=== PATIENT | female | born 1980 | race Caucasian/White ===

== ENCOUNTER 2019-11-11 19:25 | Emergency (ER) | payer BC, OTHER ==
[2019-11-11] MEDS ORDERED: SODIUM CHLORIDE 0.9% 1,000 ML IV STA (19:55)
[2019-11-11] MEDS ORDERED: ACETAMINOPHEN TAB 500 MG TAB PO STA (19:55)
--- NOTE | 2019-11-11 19:57 | ED ---
General Adult HPI - General Source: patient Mode of arrival: wheelchair Limitations: no limitations <Spencer Monroe Radha - Last Filed: 11/11/19 20:50> <Harvey Dunaway - Last Filed: 11/11/19 22:46> - General Chief complaint: Weakness Stated complaint: Dehydrated Time Seen by Provider: 11/11/19 19:43 - History of Present Illness Initial comments: Dictation was produced using [employer] dictation software. please excuse any grammatical, word or spelling errors. This patient was cared for during a federal and state declared state of emergency secondary to Covid 19 Chief Complaint: 39-year-old female past medical history diabetes, dyslipidemia presents today with right-sided flank pain, cough. History of Present Illness: 39-year-old female she states that over the last week she's been feeling symptoms. Patient states that a week ago she was diagnosed with bronchitis. She just completed a Z-Jayme today. Patient reports several last couple of issues been having worsening right-sided flank pain. She denies any urinary symptoms. She denies any history of kidney infection. She denies any loss of taste or smell. No runny nose. No sore throat. No ear pain. No abdominal pain. She has no pain complaints except for the right flank. She is having constitutional symptoms. The ROS documented in this emergency department record has been reviewed and confirmed by me. Those systems with pertinent positive or negative responses have been documented in the HPI. All other systems are other negative and/or noncontributory. PHYSICAL EXAM: General Impression: Alert and oriented x3, not in acute distress HEENT: Normocephalic atraumatic, extra-ocular movements intact, pupils equal and reactive to light bilaterally, mucous membranes moist. Cardiovascular: Heart regular rate and rhythm Chest: Able to complete full sentences, no retractions, no tachypnea Abdomen: abdomen soft, non-tender, non-distended, no organomegaly Musculoskeletal: Pulses present and equal in all extremities, no peripheral edema, positive tenderness with CVA thump on the right Motor: no focal deficits noted Neurological: CN II-XII grossly intact, no focal motor or sensory deficits noted Skin: Intact with no visualized rashes Psych: Normal affect and mood ED course: 39-year-old female presents with constitutional symptoms, right flank pain and respiratory symptoms. Vital signs upon arrival shows temperature 102.2, heart rate of 112, rest of vital signs within acceptable limits. Patient does not want to be tested for coronavirus. X-ray shows mild basilar pulmonary infiltrates and atelectasis. Consider is nonspecific findings on x-ray there is concern of coronavirus. There are pe nding laboratory studies. Patient care to be signed off to Dr. Dunaway. (Spencer Monroe) - Related Data Home Medications Medication Instructions Recorded Confirmed [id number] Acid 1 tab PO DAILY 05/11/15 06/25/15 [-U Capsule (formulary)] Previous Rx's Medication Instructions Recorded Acetaminophen-Codeine 300-30mg 1 each PO Q4HR PRN #30 tab 06/27/15 [Tylenol w/codeine #3] Ibuprofen [Motrin] 600 mg PO Q6HR PRN #60 tab 06/27/15 Doxycycline Hyclate 100 mg PO Q12H 7 Days #14 tab 11/11/19 Allergies Allergy/AdvReac Type Severity Reaction Status Date / Time No Known Allergies Allergy Verified 11/11/19 19:36 Review of Systems ROS Other: All systems not noted in ROS Statement are negative. <Spencer Monroe - Last Filed: 11/11/19 20:50> ROS Other: All systems not noted in ROS Statement are negative. <Harvey Dunaway - Last Filed: 11/11/19 22:46> ROS Statement: Those systems with pertinent positive or pertinent negative responses have been documented in the HPI. Past Medical History Past Medical History: Diabetes Mellitus, Hyperlipidemia History of Any Multi-Drug Resistant Organisms: None Reported Past Surgical History: Section, Cholecystectomy Past Anesthesia/Blood Transfusion Reactions: No Reported Reaction Past Psychological History: No Psychological Hx Reported Smoking Status: Never smoker Past Alcohol Use History: None Reported Past Drug Use History: None Reported - Past Family History Mother Family Medical History: Cancer <Spencer Monroe - Last Filed: 11/11/19 20:50> General Exam Limitations: no limitations <Spencer Monroe - Last Filed: 11/11/19 20:50> Course <Harvey Dunaway - Last Filed: 11/11/19 22:46> Vital Signs 11/11/19 19:33 Temperature 102.2 F H Pulse Rate 112 H Respiratory 18 Rate Blood Pressure 152/95 O2 Sat by Pulse 96 Oximetry - Reevaluation(s) Reevaluation #1: 11/11/19 22:41 Patient was endorsed to me by ED physician Dr. Monroe (secondary to end of his shift) with the patient's UA and blood work still pending. Patient's UA and labs are fairly unremarkable. Patient is not leukocytotic. Patient's chest x- ray shows mild basilar infiltrates. Patient states that she is now feeling better. Patient is currently breathing comfortably with a normal room air oxygen saturation. Patient is aware of her test results, and she feels comfortable going home at this time. I have explained to the patient that her Covid test is still pending, and that Covid has NOT been ruled out. I have recommended quarantine precautions. Will treat the patient with a course of doxycycline for suspected pneumonia. Patient was counseled about pneumonia and fever control, and she feels comfortable going home at this time. Patient was clearly explained return and follow-up instructions. She was instructed to follow up closely with her primary care provider. (Harvey Dunaway) Medical Decision Making - Lab Data Result diagrams: 11/11/19 20:23 11/11/19 20:23 - Radiology Data Radiology results: report reviewed (Chest x-ray: Mild basilar pulmonary infiltrate and atelectasis) <Harvey Dunaway - Last Filed: 11/11/19 22:46> - Lab Data Lab Results 11/11/19 11/11/19 11/11/19 Range/Units 20:23 20:23 20:23 WBC 5.1 (3.8-10.6) k/uL RBC 4.70 (3.80-5.40) m/uL Hgb 12.3 (11.4-16.0) gm/dL Hct 39.0 (34.0-46.0) % MCV 82.9 (80.0-100.0) fL MCH 26.1 (25.0-35.0) pg MCHC 31.4 (31.0-37.0) g/dL RDW 15.5 (11.5-15.5) % Plt Count 183 (150-450) k/uL Neutrophils % 67 % Lymphocytes % 24 % Monocytes % 5 % Eosinophils % 0 % Basophils % 1 % Neutrophils # 3.5 (1.3-7.7) k/uL Lymphocytes # 1.2 (1.0-4.8) k/uL Monocytes # 0.3 (0-1.0) k/uL Eosinophils # 0.0 (0-0.7) k/uL Basophils # 0.1 (0-0.2) k/uL Sodium 139 (137-145) mmol/L Potassium 3.8 (3.5-5.1) mmol/L Chloride 105 (98-107) mmol/L Carbon Dioxide 25 (22-30) mmol/L Anion Gap 9 mmol/L BUN 8 (7-17) mg/dL Creatinine 0.65 (0.52-1.04) mg/dL Est GFR (CKD-EPI)AfAm >90 (>60 ml/min/1.73 sqM) Est GFR (CKD-EPI)NonAf >90 (>60 ml/min/1.73 sqM) Glucose 149 H (74-99) mg/dL Plasma Lactic Acid Ashok (0.7-2.0) mmol/L Calcium 8.3 L (8.4-10.2) mg/dL Total Bilirubin 0.7 (0.2-1.3) mg/dL AST 80 H (14-36) U/L ALT 47 H (4-34) U/L Alkaline Phosphatase 79 (38-126) U/L Total Protein 7.1 (6.3-8.2) g/dL Albumin 4.0 (3.5-5.0) g/dL Urine Color Yellow Urine Appearance Cloudy H (Clear) Urine pH 5.5 (5.0-8.0) Ur Specific [place] 1.022 (1.001-1.035) Urine Protein 1+ H (Negative) Urine Glucose (UA) Negative (Negative) Urine Ketones Negative (Negative) Urine Blood Negative (Negative) Urine Nitrite Negative (Negative) Urine Bilirubin Negative (Negative) Urine Urobilinogen <2.0 (<2.0) mg/dL Ur Leukocyte Esterase Negative (Negative) Urine RBC 1 (0-5) /hpf Urine WBC 2 (0-5) /hpf Ur Squamous Epith Cells 2 (0-4) /hpf Amorphous Sediment Rare H (None) /hpf Urine Bacteria Rare H (None) /hpf Urine Mucus Moderate H (None) /hpf 11/11/19 Range/Units 20:23 WBC (3.8-10.6) k/uL RBC (3.80-5.40) m/uL Hgb (11.4-16.0) gm/dL Hct (34.0-46.0) % MCV (80.0-100.0) fL MCH (25.0-35.0) pg MCHC (31.0-37.0) g/dL RDW (11.5-15.5) % Plt Count (150-450) k/uL Neutrophils % % Lymphocytes % % Monocytes % % Eosinophils % % Basophils % % Neutrophils # (1.3-7.7) k/uL Lymphocytes # (1.0-4.8) k/uL Monocytes # (0-1.0) k/uL Eosinophils # (0-0.7) k/uL Basophils # (0-0.2) k/uL Sodium (137-145) mmol/L Potassium (3.5-5.1) mmol/L Chloride (98-107) mmol/L Carbon Dioxide (22-30) mmol/L Anion Gap mmol/L BUN (7-17) mg/dL Creatinine (0.52-1.04) mg/dL Est GFR (CKD-EPI)AfAm (>60 ml/min/1.73 sqM) Est GFR (CKD-EPI)NonAf (>60 ml/min/1.73 sqM) Glucose (74-99) mg/dL Plasma Lactic Acid Ashok 1.3 (0.7-2.0) mmol/L Calcium (8.4-10.2) mg/dL Total Bilirubin (0.2-1.3) mg/dL AST (14-36) U/L ALT (4-34) U/L Alkaline Phosphatase (38-126) U/L Total Protein (6.3-8.2) g/dL Albumin (3.5-5.0) g/dL Urine Color Urine Appearance (Clear) Urine pH (5.0-8.0) Ur Specific [place] (1.001-1.035) Urine Protein (Negative) Urine Glucose (UA) (Negative) Urine Ketones (Negative) Urine Blood (Negative) Urine Nitrite (Negative) Urine Bilirubin (Negative) Urine Urobilinogen (<2.0) mg/dL Ur Leukocyte Esterase (Negative) Urine RBC (0-5) /hpf Urine WBC (0-5) /hpf Ur Squamous Epith Cells (0-4) /hpf Amorphous Sediment (None) /hpf Urine Bacteria (None) /hpf Urine Mucus (None) /hpf Disposition <Spencer Monroe - Last Filed: 11/11/19 20:50> Is patient prescribed a controlled substance at d/c from ED?: No Time of Disposition: 22:46 <Harvey Dunaway - Last Filed: 11/11/19 22:46> Clinical Impression: Pneumonia, Acute febrile illness Disposition: HOME SELF-CARE Condition: Stable Instructions (If sedation given, give patient instructions): Fever in Adults (ED), Pneumonia (ED) Additional Instructions: Return to the ER immediately should you develop any significant pain, shortness of breath, vomiting, feeling dizzy or faint, or new or worsening symptoms. Follow up closely with your primary care provider. Prescriptions: Doxycycline Hyclate 100 mg PO Q12H 7 Days #14 tab Referrals: Gustavo Kc MD [Primary Care Provider] - 1-2 days
--- NOTE | 2019-11-11 20:40 | XR ---
EXAMINATION TYPE: XR chest 1V portable DATE OF EXAM: 11/11/2019 COMPARISON: NONE HISTORY: Cough and weakness TECHNIQUE: Single view FINDINGS: There is some mild infiltrate and atelectasis at the lung bases. Heart size is normal. Ther e is no heart failure. There are no hilar masses. IMPRESSION: Mild basilar pulmonary infiltrates and atelectasis.
[2019-11-11 20:50] LABS: Basophils # (A) 0.1 k/uL (0-0.2); Basophils % (A) 1 %; Eosinophils % (A) 0 %; HGB 12.3 gm/dL (11.4-16.0); Lymphocytes # (A) 1.2 k/uL (1.0-4.8); Lymphocytes % (A) 24 %; MCH 26.1 pg (25.0-35.0); MCHC 31.4 g/dL (31.0-37.0); MCV 82.9 fL (80.0-100.0); Mean Platelet Volume 7.3; Monocytes # (A) 0.3 k/uL (0-1.0); Monocytes % (A) 5 %; Neutrophils # (A) 3.5 k/uL (1.3-7.7); Neutrophils % (A) 67 %; Platelet Count 183 k/uL (150-450); RDW 15.5 % (11.5-15.5); WBC 5.1 k/uL (3.8-10.6)
[2019-11-11 21:06] LABS: ALT 47 U/L (4-34); AST 80 U/L (14-36); African American GFR (CKD) >90 (>60 ml/min/1.73 sqM); Alkaline Phosphatase 79 U/L (38-126); Anion Gap 9 mmol/L; Blood Urea Nitrogen 8 mg/dL (7-17); Calcium 8.3 mg/dL (8.4-10.2); Carbon Dioxide 25 mmol/L (22-30); Chloride 105 mmol/L (98-107); Glucose 149 mg/dL (74-99); Non-African American GFR(CKD) >90 (>60 ml/min/1.73 sqM); Potassium 3.8 mmol/L (3.5-5.1); Sodium 139 mmol/L (137-145); Total Bilirubin 0.7 mg/dL (0.2-1.3); Total Protein 7.1 g/dL (6.3-8.2)
[2019-11-11 21:20] LABS: Amorphous Sediment,Urine Rare /hpf; Appearance,Urine Cloudy (Clear); Bacteria,Urine Rare /hpf; Bilirubin,Urine Negative (Negative); Blood,Urine Negative (Negative); Color,Urine Yellow; Glucose,Urine (UA) Negative (Negative); Ketones,Urine Negative (Negative); Leukocyte Esterase,Urine Negative (Negative); Mucus,Urine Moderate /hpf; Nitrite,Urine Negative (Negative); PH, Urine 5.5 (5.0-8.0); Protein,Urine 1+ (Negative); RBC,Urine 1 /hpf (0-5); Specific Gravity,Urine 1.022 (1.001-1.035); Squamous Epithelial Cell,Urine 2 /hpf (0-4); Urobilinogen,Urine <2.0 mg/dL (<2.0); WBC,Urine 2 /hpf (0-5)
[2019-11-11] MEDS ORDERED: DOXYCYCLINE 100 MG CAP PO STA (22:34)
[2019-11-11 22:47] VITALS: BP 123/85; PULSE 95; RESP 16; TEMP 98.6
== END 2019-11-11 22:52 | disposition home or self-care (01) ==
LOC: EC 19:25
DX: U07.1 COVID-19 (principal); J12.89 Other viral pneumonia; J98.11 Atelectasis; R91.8 Other nonspecific abnormal finding of lung field; R10.9 Unspecified abdominal pain
CPT/HCPCS: 99285; 96360; 36415; 80053; 83605; 85025; 81001; 87040; 71045; U0003

== ENCOUNTER → 2020-06-05 | Outpatient (CLI) | payer BC ==
--- NOTE | 2020-06-06 13:27 | MM ---
Reason for exam: screening (asymptomatic). Last mammogram was performed 4 years and 6 months ago. Physical Findings: A clinical breast exam by your physician is recommended on an annual basis and results should be correlated with mammographic findings. MG 3D Screening Mammo W/Cad Bilateral CC and MLO view(s) were taken. XCCL view(s) were taken of the left breast. Prior study comparison: December 09, 2015, bilateral MG screening mammo w CAD. The breast tissue is heterogeneously dense. This may lower the sensitivity of mammography. There are benign appearing round calcifications bilaterally. There is no discrete abnormality. ASSESSMENT: Benign, BI-RAD 2 RECOMMENDATION: Routine screening mammogram of both breasts in 1 year.
== END | disposition home or self-care (01) ==
LOC: RADMAMWWP 10:48
PROVIDERS: ATTEND Family Medicine
DX: Z12.31 Encounter for screening mammogram for malignant neoplasm of breast (principal)
CPT/HCPCS: 77063; 77067

== ENCOUNTER → 2021-06-06 | Outpatient (CLI) | payer OTHER ==
--- NOTE | 2021-06-09 11:48 | MM ---
Reason for exam: screening (asymptomatic). Last mammogram was performed 1 year ago. Physical Findings: A clinical breast exam by your physician is recommended on an annual basis and results should be correlated with mammographic findings. MG Screening Mammo w CAD Bilateral CC and MLO view(s) were taken. Prior study comparison: June 05, 2020, bilateral MG 3d screening mammo w/cad. December 09, 2015, bilateral MG screening mammo w CAD. There are scattered fibroglandular densities. Asymmetric breast tissue right middle breast 11-12cm from nipple on MLO and left CC view middle position 8cm from nipple. ASSESSMENT: Incomplete: need additional imaging evaluation, BI-RAD 0 RECOMMENDATION: Special view mammogram of the right breast. If lesion persists on supplemental views, image directed ultrasound is recommended. [facility] will attempt to contact patient to return for supplemental views and ultrasound if indicated.
== END | disposition home or self-care (01) ==
LOC: RADMAMWWP 09:01
PROVIDERS: ATTEND Obstetrics & Gynecology
DX: Z12.31 Encounter for screening mammogram for malignant neoplasm of breast (principal)
CPT/HCPCS: 77067

== ENCOUNTER → 2021-06-10 | Outpatient (CLI) | payer OTHER ==
--- NOTE | 2021-06-10 11:12 | MM ---
Reason for exam: additional evaluation requested from abnormal screening. Last mammogram was performed less than 1 month ago. Physical Findings: A clinical breast exam by your physician is recommended on an annual basis and results should be correlated with mammographic findings. MG 3D Work Up W/Cad JUAN DANIEL Bilateral ML view(s) were taken. Spot compression MLO view(s) were taken of the right breast. Spot compression CC view(s) were taken of the left breast. Prior study comparison: June 06, 2021, bilateral MG screening mammo w CAD. June 05, 2020, bilateral MG 3d screening mammo w/cad. The breast tissue is heterogeneously dense. This may lower the sensitivity of mammography. No distinct lesion persists on additional views. Results were given to the patient verbally at the time of the exam. ASSESSMENT: Negative, BI-RAD 1 RECOMMENDATION: Return to routine screening mammogram schedule for both breasts.
== END | disposition home or self-care (01) ==
LOC: RADMAMWWP 10:14
PROVIDERS: ATTEND Obstetrics & Gynecology
DX: R92.8 Other abnormal and inconclusive findings on diagnostic imaging of breast (principal)
CPT/HCPCS: 77062; 77066

== ENCOUNTER → 2022-08-10 | Outpatient (CLI) | payer BC ==
--- NOTE | 2022-08-12 07:50 | MM ---
Reason for Exam: Screening (asymptomatic). Last mammogram was performed 1 year(s) and 3 month(s) ago. Patient History: Menarche at age 11. First Full-Term at age 20. Premenopausal. Mother had ovarian cancer under age 50. Risk Values: Kate 5 year model risk: 0.6%. NCI Lifetime model risk: 8.8%. Prior Study Comparison: 12/09/2015 Bilateral Screening Mammogram, [facility]. 06/05/2020 Bilateral Screening Mammogram, [facility]. 06/06/2021 Bilateral Screening Mammogram, [facility]. 06/10/2021 Bilateral Diagnostic Mammogram, [facility]. Tissue Density: The breast tissue is heterogeneously dense. This may lower the sensitivity of mammography. Findings: Analyzed By CAD. There is no suspicious group of microcalcifications or new suspicious mass in either breast. Overall Assessment: Negative, BI-RAD 1 Management: Screening Mammogram of both breasts in 1 year. A clinical breast exam by your physician is recommended on an annual basis and results should be correlated with mammographic findings. Note on Kate scores and lifetime risk: 1. A Kate score greater than 3% is considered moderate risk. If this is the case, consider specialist referral to assess eligibility for a risk reducing agent. If overall lifetime risk for the development of breast cancer is 20% or higher, the patient may qualify for future screening with alternating mammogram and breast MRI. Electronically signed and approved by: Yoni Bowers D.O.
== END | disposition home or self-care (01) ==
LOC: RADMAMWWP 08:18
PROVIDERS: ATTEND Family Medicine
DX: Z12.31 Encounter for screening mammogram for malignant neoplasm of breast (principal); Z80.41 Family history of malignant neoplasm of ovary
CPT/HCPCS: 77063; 77067

== ENCOUNTER → 2022-09-10 | Outpatient (CLI) | payer BC ==
--- NOTE | 2022-09-10 12:20 | US ---
EXAMINATION TYPE: US transvaginal DATE OF EXAM: 09/10/2022 COMPARISON: US 2010 CLINICAL INDICATION: Female, 42 years old with history of R10.2 PELVIC AND PERINEAL PAIN; 1 episode o f pelvic pain 2 weeks ago, family history ovarian cancer, history 2 c-sections TECHNIQUE: Transvaginal only per patient's order Date of LMP: 08/22/2022 EXAM MEASUREMENTS: Uterus: 8.2 x 4.4 x 5.2 cm Endometrial Stripe: 1.3 cm Right Ovary: 3.9 x 2.2 x 2.8 cm Left Ovary: not seen 1. Uterus: anteverted, mildly heterogeneous myometrium. 4 mm fluid locule at the patient's scar. 2. Endometrium: Upper limits of normal, measures wnl for patient's LMP 3. Right Ovary: 2.3 x 1.4 x 2.1cm complex area with hyperechoic rim, 1.8 x 1.4 x 1.6cm hypoechoic ar ea 4. Left Ovary: not seen due to overlying bowel gas 5. Bilateral Adnexa: wnl 6. Posterior cul-de-sac: small amount of free fluid IMPRESSION: 1. A tiny scar niche measuring 4 mm. 2. Endometrial stripe thickening to the upper limits of normal at 1.3 cm. This should correspond to t he secretory phase of the menstrual cycle. 3. A couple lesions within the right ovary measuring 2.3 cm and 1.8 cm, probably a hemorrhagic cyst a nd corpus luteum. Follow-up in 6-8 weeks to assess for involution. 4. Small amount of cul-de-sac free fluid probably physiologic. 5. Unable to visualize the left ovary.
== END | disposition home or self-care (01) ==
LOC: RADUSWWP 09:31
PROVIDERS: ATTEND Family Medicine
DX: N89.8 Other specified noninflammatory disorders of vagina (principal); N83.9 Noninflammatory disorder of ovary, fallopian tube and broad ligament, unspecified; R93.89 Abnormal findings on diagnostic imaging of other specified body structures; Z80.41 Family history of malignant neoplasm of ovary
CPT/HCPCS: 76830

== ENCOUNTER → 2022-09-18 | Outpatient (CLI) | payer BC ==
--- NOTE | 2022-09-21 11:28 | CT ---
EXAMINATION TYPE: CT abdomen pelvis wo con DATE OF EXAM: 09/18/2022 COMPARISON: Ultrasound 09/10/2022 HISTORY: 42-year-old female R10.2 Pelvic and perineal pain. Prior Transvaginal US done recently, wher e left ovary was unable to be visualized. Mom from ovarian CA. CT DLP: 730.6 mGycm. Automated exposure control for dose reduction was used. TECHNIQUE: Contiguous axial scanning of the abdomen and pelvis without IV contrast. Coronal and sagit yulissa reconstructions performed. FINDINGS: Heart normal size without pericardial effusion. Lung bases clear without pleural effusion. Tiny hiatal hernia. Noncontrast appearance of the liver, adrenal glands, kidneys, spleen, and pancreas show no gross abno rmality. Cholecystectomy clips. No dilated small bowel, free fluid, or free air. No mesenteric or retroperitoneal lymphadenopathy. Tiny fatty umbilical hernia. Normal appendix. Mild scattered stool burden. No pericolonic inflammatory change. Bladder partially distended. Left-sided pelvic phlebolith. No abnormal fluid collection in the pelvis or pelvic lymphadenopathy. Uterus anteverted. Both ovaries are visualized. No sizable mass is identified of either ovary. The right ovary measures 3.7 x 2.8 x 2.1 cm for a volume of 10.9 mL. The left ovary measures 2.7 x 2.9 x 2.3 cm for a volume of 9.0 mL. Bones: Mild degenerative disc disease L5-S1. Mild anterior endplate spondylosis lower thoracic spine. IMPRESSION: 1. Both ovaries are visualized and measure normal size without appreciable mass. In regards to the r ight ovary ultrasound findings of 09/10/2022, the 6-8 week follow-up ultrasound should still be perform ed as this noncontrast CT does not provide detailed ovarian assessment. 2. Tiny hiatal hernia and tiny fatty umbilical hernia.
== END | disposition home or self-care (01) ==
LOC: RADCTMAIN 16:22
PROVIDERS: ATTEND Family Medicine
DX: K44.9 Diaphragmatic hernia without obstruction or gangrene (principal); K42.9 Umbilical hernia without obstruction or gangrene; R10.2 Pelvic and perineal pain
CPT/HCPCS: 74176

== ENCOUNTER → 2023-12-09 | Outpatient (CLI) | payer BC ==
--- NOTE | 2023-12-10 17:55 | MM ---
Reason for Exam: Screening (asymptomatic). Last mammogram was performed 1 year(s) and 3 month(s) ago. Patient History: Menarche at age 11. First Full-Term at age 20. Premenopausal. Mother had ovarian cancer under age 50. Last menstrual period: 11/28/2023 Risk Values: Kate 5 year model risk: 0.7%. NCI Lifetime model risk: 8.7%. Prior Study Comparison: 06/06/2021 Bilateral Screening Mammogram, [facility]. 06/10/2021 Bilateral Diagnostic Mammogram, [facility]. 08/10/2022 Bilateral MG 3D screening mammo w/cad, [facility]. Tissue Density: The breasts are heterogeneously dense, which may obscure small masses. Findings: Analyzed By CAD. There is no suspicious group of microcalcifications or new suspicious mass in either breast. Overall Assessment: Negative, BI-RAD 1 Management: Screening Mammogram of both breasts in 1 year. . Patient should continue monthly self-breast exams. A clinical breast exam by your physician is recommended on an annual basis. This exam should not preclude additional follow-up of suspicious palpable abnormalities. Note on Kate scores and lifetime risk: 1. A Kate score greater than 3% is considered moderate risk. If this is the case, consider specialist referral to assess eligibility for a risk reducing agent. 2. If overall lifetime risk for the development of breast cancer is 20% or higher, the patient may qualify for future screening with alternating mammogram and breast MRI. [facility], , 12/10/2023 5:53 PM. Electronically signed and approved by: Cuco Oneal M.D. Radiologist
== END | disposition home or self-care (01) ==
LOC: RADMAMWWP 09:00
PROVIDERS: ATTEND Family Medicine
DX: Z12.31 Encounter for screening mammogram for malignant neoplasm of breast (principal); R92.333 Mammographic heterogeneous density, bilateral breasts; Z80.41 Family history of malignant neoplasm of ovary
CPT/HCPCS: 77063; 77067